=== PATIENT | male | born 1965 | race Caucasian/White ===

== ENCOUNTER 2017-09-11 17:39 | Emergency (ER) | END 2017-09-11 18:28 | disposition home or self-care (01) ==

== ENCOUNTER 2018-08-09 17:21 | Inpatient (IN) | payer MEDICAID ==
[~2018-08-09] VITALS: Ht 167.6 cm; Wt 74.5 kg
[~2018-08-09 17:21] MED LIST: BACTDS PO; CEPH-443 PO; CYCL10TA7 PO; IBUP-1561 PO; NAPR-985 PO
[2018-08-09] MEDS ORDERED: PANTOPRAZOLE IV 80 MG in SOD CHLORIDE 0.9% 100 ML IV STA (19:12)
[2018-08-09] MEDS ORDERED: PANTOPRAZOLE IV 80 MG in SOD CHLORIDE 0.9% 100 ML IVPB STA (19:12)
--- NOTE | 2018-08-09 19:28 | ERD ---
ER Documentation Chief Complaint Chief Complaint Complains of blood in the stool x 3 days HPI 53-year-old male who presents to the emergency room complaining of 5 days of epigastric abdominal discomfort. A known history of gastritis. He denies alcohol abuse or NSAID abuse. Patient notes melanotic stool over the past 24 hours. He denies any chest pain or chest pressure. No lightheadedness or dizziness. He denies taking [id number]-iadakvd iron or Pepto-Bismol. ROS All systems reviewed and are negative except as per history of present illness. Medications Home Meds Active Scripts Naproxen* (Naprosyn*) 500 Mg Tablet, 500 MG PO BID PRN for PAIN AND/OR INFLAMMATION, #30 TAB Prov:OLGA MEDINA PA-C 09/11/17 Cyclobenzaprine Hcl* (Cyclobenzaprine Hcl*) 10 Mg Tablet, 10 MG PO TID, #15 TAB Prov:OLGA MEDINA PA-C 09/11/17 Ibuprofen* (Motrin*) 400 Mg Tab, 400 MG PO Q6 for 7 Days, #30 TAB 0 Refills Prov:VU FRAGA PA-C 03/05/16 Sulfamethoxazole-Trimethoprim* (Bactrim* DS) 800-160 Mg Tab, 1 TAB PO BID for 7 Days, #14 TAB 0 Refills Prov:VU FRAGA PA-C 03/05/16 Cephalexin* (Keflex*) 500 Mg Capsule, 500 MG PO TID for 7 Days, #21 CAP 0 Refills Prov:VU FRAGA PA-C 03/05/16 Allergies Allergies: Coded Allergies: No Known Allergy (Unverified , 04/30/14) FmHx Family History: No diabetes Physical Exam Vitals Vital Signs Date Temp Pulse Resp B/P (MAP) Pulse Ox O2 O2 Flow FiO2 Time Delivery Rate 08/09/18 90 16 120/99 100 Room Air 19:15 (106) 08/09/18 97.5 103 20 143/85 98 17:22 (104) Physical Exam General: Well developed, well nourished, no acute distress Head: Normocephalic, atraumatic. Eyes: Pupils equally reactive, EOM intact ENT: Moist mucous membranes Neck: Supple, no lymphadenopathy Respiratory: Lungs clear bilaterally, no distress Cardiovascular: RRR, no murmurs, rubs, or gallops Abdominal: Soft, non-tender, non-distended, no peritoneal signs : Melena on digital rectal examination, no hemorrhoids MSK: No edema, no unilateral swelling, 5/5 strength Neurologic: Alert and oriented, moving all extremities, normal speech, no focal weakness, no cerebellar signs Skin: No rash Psych: Normal mood Result Diagram: 08/09/18191908/09/181919 Results 24 hrs Laboratory Tests Test 08/09/18 19:20 White Blood Count 10.1 10^3/ul Red Blood Count 5.42 10^6/ul Hemoglobin 16.3 g/dl Hematocrit 47.6 % Mean Corpuscular Volume 87.8 fl Mean Corpuscular Hemoglobin 30.1 pg Mean Corpuscular Hemoglobin Concent 34.2 g/dl Red Cell Distribution Width 12.5 % Platelet Count 250 10^3/UL Mean Platelet Volume 8.7 fl Immature Granulocytes % 0.400 % Neutrophils % 62.2 % Lymphocytes % 30.5 % Monocytes % 4.8 % Eosinophils % 1.7 % Basophils % 0.4 % Nucleated Red Blood Cells % 0.0 /100WBC Immature Granulocytes # 0.040 10^3/ul Neutrophils # 6.3 10^3/ul Lymphocytes # 3.1 10^3/ul Monocytes # 0.5 10^3/ul Eosinophils # 0.2 10^3/ul Basophils # 0.0 10^3/ul Nucleated Red Blood Cells # 0.0 10^3/ul Prothrombin Time 12.9 Sec Prothrombin Time Ratio 1.0 INR International Normalized Ratio 0.96 Activated Partial Thromboplast Time 29.0 Sec Sodium Level 141 mmol/L Potassium Level 4.1 mmol/L Chloride Level 98 mmol/L Carbon Dioxide Level 27 mmol/L Anion Gap 16 Blood Urea Nitrogen 13 mg/dl Creatinine 0.86 mg/dl Est Glomerular Filtrat Rate mL/min > 60 mL/min Glucose Level 104 mg/dl Calcium Level 9.6 mg/dl Total Bilirubin 0.1 mg/dl Direct Bilirubin 0.00 mg/dl Indirect Bilirubin 0.1 mg/dl Aspartate Amino Transf (AST/SGOT) 35 IU/L Alanine Aminotransferase (ALT/SGPT) 47 IU/L Alkaline Phosphatase 102 IU/L Total Protein 8.3 g/dl Albumin 4.8 g/dl Lipase 59 U/L Current Medications Medications Dose Sig/Hannah Start Time Status Last (Trade) Ordered Route PRN Stop Time Admin Dose Reason Admin Pantoprazole 100 ml @ ONCE STAT 08/09/18 DC 08/09/18 80 mg/Sodium 400 mls/hr IVPB 19:12 20:30 Chloride 08/09/18 19:26 Pantoprazole 100 ml @ ONCE STAT 08/09/18 08/09/18 80 mg/Sodium 10 mls/hr IV 19:12 20:30 Chloride 08/10/18 05:11 Procedures/MDM LAB INTERPRETATION: I reviewed the laboratory testing and it shows reassuring hemoglobin and BUN to creatinine ratio MEDICAL DECISION MAKING: Patient with clinical signs and symptoms consistent with subacute upper GI hemorrhage. Likely secondary to gastritis versus peptic ulcer disease. PPI bolus and drip would be indicated. No evidence of cirrhosis or alcoholic disease process. No indication for octreotide or antibiotics. No signs or symptoms of active hemorrhage. No indication for NG tube or lavage. The patient will benefit from PPI, monitoring, serial hemoglobin and GI consultation for endoscopy. ER COURSE: * Large bore peripheral IV was inserted. Patient started on PPI bolus and drip * The patient's lavatory testing is very reassuring. This is likely subacute process however given the patient has very poor outpatient follow-up I believe inpatient hospitalization for a GI consultation and endoscopy is appropriate. The patient is high risk given his acute melena. Therefore I do not believe outpatient management would be appropriate CONSULTATION: [None] DISPOSITION PLAN: Accepting care team and consultations: I discussed the current laboratory data, diagnostic imaging and emergency care provided. Admitting team: Dr. Atkins Admitting team indication: Insurance directed Departure Diagnosis: Primary Impression: Upper GI bleed Additional Impressions: Gastritis Gastritis type: unspecified gastritis Chronicity: acute Gastritis bleeding: with bleeding Qualified Codes: K29.01 - Acute gastritis with bleeding Melena Condition: Stable SÁNCHEZ DÍAZ MD Aug 09, 2018 19:28
--- NOTE | 2018-08-09 20:53 | HP ---
Date/Time of Note Date/Time of Note DATE: 08/09/18 TIME: 20:53 Assessment/Plan VTE Prophylaxis SCD applied (from Nsg): Yes Pharmacological prophylaxis: NA/contraindicated Pharm contraindication: bleeding Lines/Catheters IV Catheter Type (from Nrsg): Saline Lock Assessment/Plan Assessment/Plan 1. Acute epigastric pain - GI consulted to assess need for EGD - PPI on board - supportive care - clear diet and will keep NPO after midnight in anticipation for any procedures 2. Melena - PPI drip started in ED - FOBT ordered 3. h/o gastritis - PPI 4. Diet - NPO 5. GI ppx - PPI 6. DVT ppx - SCD 7. Disposition - Admit to med/surg for workup of acute GI bleed Result Diagram: 08/09/18191908/09/181919 Results 24hrs Laboratory Tests Test 08/09/18 19:20 White Blood Count 10.1 Red Blood Count 5.42 Hemoglobin 16.3 Hematocrit 47.6 Mean Corpuscular Volume 87.8 Mean Corpuscular Hemoglobin 30.1 Mean Corpuscular Hemoglobin Concent 34.2 Red Cell Distribution Width 12.5 Platelet Count 250 Mean Platelet Volume 8.7 Immature Granulocytes % 0.400 Neutrophils % 62.2 Lymphocytes % 30.5 Monocytes % 4.8 Eosinophils % 1.7 Basophils % 0.4 Nucleated Red Blood Cells % 0.0 Immature Granulocytes # 0.040 H Neutrophils # 6.3 Lymphocytes # 3.1 H Monocytes # 0.5 Eosinophils # 0.2 Basophils # 0.0 Nucleated Red Blood Cells # 0.0 Prothrombin Time 12.9 Prothrombin Time Ratio 1.0 INR International Normalized Ratio 0.96 Activated Partial Thromboplast Time 29.0 Sodium Level 141 Potassium Level 4.1 Chloride Level 98 Carbon Dioxide Level 27 Anion Gap 16 H Blood Urea Nitrogen 13 Creatinine 0.86 Est Glomerular Filtrat Rate mL/min > 60 Glucose Level 104 Calcium Level 9.6 Total Bilirubin 0.1 L Direct Bilirubin 0.00 Indirect Bilirubin 0.1 Aspartate Amino Transf (AST/SGOT) 35 Alanine Aminotransferase (ALT/SGPT) 47 Alkaline Phosphatase 102 Total Protein 8.3 H Albumin 4.8 Lipase 59 HPI/ROS Admit Date/Time Admit Date/Time 08/09/180 Hx of Present Illness 53 yo M with PMH gastritis presents to ED due to worsening epigastric pain for the past 1 week as well as melena for the past day. Patient states he has been experiencing severe epigastric pain, nonradiating, able to tolerate small PO intake. Patient admits to associated nausea but denies any vomiting, hematemesis, chest pain, dizziness, palpitations, urinary issues, constipation, diarrhea, or bright red blood per rectum. Patient has had gastritis for many years and takes Zantac and Pepcid for relief. He denies having melena in the past or EGD as well. ROS All 12 systems reviewed and pertinent positives as per HPI. All others negative. Constitutional: fatigue, nausea; No chills Eyes: No discharge ENT: No congestion Respiratory: No cough, No shortness of breath, No sputum, No wheezing Cardiovascular: No chest pain, No lightheadedness, No palpitations Gastrointestinal: pain, nausea; No constipation, No diarrhea, No vomiting Genitourinary: no complaints Musculoskeletal: no complaints Skin: no complaints Neurologic: No confusion, No dizziness, No focal-weakness, No syncope Endocrine: no complaints Lymphatic: no complaints Psychological: nl mood/affect Immunologic: no complaints PMH/Family/Social Past Medical History Medical History: GERD Medications Current Medications Pantoprazole 80 mg/Sodium Chloride 100 ml @ 10 mls/hr ONCE STAT IV Last administered on 08/09/18at 20:30; Admin Dose 10 MLS/HR; Start 08/09/18 at 19:12; Stop 08/10/18 at 05:11 Ondansetron HCl (Zofran Inj) 4 mg BRIDGE ORDER PRN IV NAUSEA/VOMITING; Start 08/09/18 at 21:00; Stop 08/10/18 at 20:59 Acetaminophen (Tylenol Tab) 650 mg ER BRIDGE PRN PO .MILD PAIN 1-3 OR TEMP; Start 08/09/18 at 21:00; Stop 08/10/18 at 20:59 Coded Allergies: No Known Allergy (Unverified , 04/30/14) Past Surgical History Past Surgical Hx: no surgical history Family History Significant Family History: no pertinent family hx Social History Alcohol Use: rarely Smoking Status: Never smoker Drug Use: none Exam/Review of Systems Vital Signs Vitals Vital Signs Date Temp Pulse Resp B/P (MAP) Pulse Ox O2 O2 Flow FiO2 Time Delivery Rate 08/09/18 90 16 120/99 100 Room Air 19:15 (106) 08/09/18 97.5 17:22 Exam Exam General: Patient is a pleasant male, fatigued, currently lying in bed. distress secondary to pain HEENT: Atraumatic, normocephalic. The pupils are equal, round and reactive. Extraocular motor are intact Neck: Supple with full range of motion. No rigidity or meningismus Chest: Nontender Lungs: Clear to auscultation bilaterally no crackles rales or wheezing Heart: Normal S1-S2, Regular rhythm and rate. no murmurs Abdomen: Soft , mild tenderness epigastric area, nondistended , bowel sounds are present. No guarding no rebound tenderness , No masses or organomegaly. No costovertebral temporal angle mass Extremities: Normal to inspection, no edema no cyanosis Neurologic: Normal mental status, speech normal, cranial nerves II through XII are intact, motor and sensory are intact, Additional Comments Home medication reviewed NAINA VELASQUEZ MD Aug 09, 2018 20:53
[2018-08-09] MEDS ORDERED: ACETAMINOPHEN 325 MG TAB PO PRN ×2 (21:00)
[2018-08-09] MEDS ORDERED: ONDANSETRON 4 MG INJ IV PRN ×2 (21:00)
[2018-08-09] MEDS ORDERED: NACL 0.9% 3 ML SYG IV SCH (21:00)
[2018-08-09] MEDS: DEXTROSE 5%-0.45% NACL 1,000 ML IV SCH (21:27)
[2018-08-09 23:15] VITALS: BP 117/80; PULSE 84; RESP 19; Ht 167.6 cm; Wt 74.5 kg
[2018-08-10] VITALS (16 sets, daily range): BP systolic 99–128; BP diastolic 64–85; PULSE 70–88; RESP 11–22
[2018-08-10] MEDS ORDERED: RANI150T5 PO (00:06)
[2018-08-10] MEDS ORDERED: morphine 2 MG INJ IV PRN (02:30)
[2018-08-10] MEDS: DEXTROSE 5%-0.45% NACL 1,000 ML IV SCH ×2 (05:20→15:56)
--- NOTE | 2018-08-10 13:49 | CONS ---
Assessment/Plan Assessment/Plan Hospital Course (Demo Recall) Summary Assessment and Plan: Assessment: Melena Epigastric pain History of gastritis Plan: PPI therapy NPO EGD today Endoscopy - risks/benefits/alternatives/indications of procedure and sedation/anesthesia discussed with patient who states understanding and gives informed consent to proceed. Further recommendations based on clinical course Patient seen in collaboration with Dr. Peña CC: HENRY PEÑA ; Consultation Date/Type/Reason Admit Date/Time 08/09/182129 Date of Consultation: Aug 10, 2018 Type of Consult GI Reason for Consultation Epigastric pain/ Melena Date/Time of Note DATE: 08/10/18 TIME: 13:41 Hx of Present Illness This is a 53 year old male with PMH of gastritis who presented to the ED with c/o progressive epigastric pain and x2 episodes of melena. Patient states upper abdominal pain initially started about 3 weeks ago became progressively worse, aggravated or relieved by anything in particular. Socially patient denies smoking, drug use drinks about 1 beer on special occasions. He does note intermittent nonsteroidal anti-inflammatory drug use. Has been consulted for possible upper endoscopy. Workup in the ED shows a hemoglobin of 16.3 it was again checked today is noted to be 15.7, INR 0.96 LFTs are within normal limit discussed plan for upper endoscopy today reviewed risk/benefits patient and both verbalized understanding are agreeable to procedure. Review of Systems: A 12 system, review was conducted and is negative except as noted in the HPI or here. Past Medical History Medical History: GERD Home Meds Active Scripts Ibuprofen* (Motrin*) 400 Mg Tab, 400 MG PO Q6 for 7 Days, #30 TAB 0 Refills Prov:VU FRAGA PA-C 03/05/16 Reported Medications Ranitidine Hcl* (Ranitidine Hcl*) 150 Mg Tablet, 150 MG PO Q12, #60 TAB 08/10/18 Discontinued Scripts Naproxen* (Naprosyn*) 500 Mg Tablet, 500 MG PO BID PRN for PAIN AND/OR INFLAMMATION, #30 TAB Prov:OLGA MEIDNA PA-C 09/11/17 Cyclobenzaprine Hcl* (Cyclobenzaprine Hcl*) 10 Mg Tablet, 10 MG PO TID, #15 TAB Prov:OLGA MEDINA PA-C 09/11/17 Sulfamethoxazole-Trimethoprim* (Bactrim* DS) 800-160 Mg Tab, 1 TAB PO BID for 7 Days, #14 TAB 0 Refills Prov:VU FRAGA PA-C 03/05/16 Cephalexin* (Keflex*) 500 Mg Capsule, 500 MG PO TID for 7 Days, #21 CAP 0 Refills Prov:VU FRAGA PA-C 03/05/16 Medications Current Medications Dextrose/Sodium Chloride 1,000 ml @ 100 mls/hr Q10H IV Last administered on 08/10/18at 05:20; Admin Dose 100 MLS/HR; Start 08/09/18 at 20:51 IV Flush (NS 3 ml) 3 ml PER PROTOCOL IV ; Start 08/09/18 at 21:00 Ondansetron HCl (Zofran Inj) 4 mg Q6H PRN IV NAUSEA/VOMITING; Start 08/09/18 at 21:00 Acetaminophen (Tylenol Tab) 650 mg Q6H PRN PO .PAIN 1-3 OR TEMP Last administered on 08/10/18at 10:59; Admin Dose 650 MG; Start 08/09/18 at 21:00 Morphine Sulfate (morphine) 2 mg Q4H PRN IV SEVERE PAIN LEVEL 7-10 Last administered on 08/10/18at 02:33; Admin Dose 2 MG; Start 08/10/18 at 02:30 Allergies: Coded Allergies: No Known Allergy (Unverified , 08/09/18) Past Surgical History Past Surgical Hx: no surgical history Social History Alcohol Use: rarely Smoking Status: Never smoker Drug Use: none Exam/Review of Systems Exam Vitals Vital Signs Date Temp Pulse Resp B/P (MAP) Pulse Ox O2 O2 Flow FiO2 Time Delivery Rate 08/10/18 98.8 84 20 110/64 96 08:00 (79) 08/09/18 Room Air 22:48 Intake and Output 08/09/18 08/09/18 08/10/18 1515:00 23:00 07:00 IntakeIntake Total 1100 ml BalanceBalance 1100 ml PHYSICAL EXAMINATION: GENERAL: Well developed, well nourished, alert & oriented x 3, in no acute distress SKIN: No lesions HEAD: Normocephalic, atraumatic, no tenderness. EYES: Pupils equal reactive to light, no discharge. EARS/NOSE AND THROAT: Ears normal, nose normal NECK: Supple CHEST: Inspection within normal limits. CARDIOVASCULAR: Heart: Regular rate and rhythm RESPIRATORY: Lungs clear to auscultation GASTROINTESTINAL AND LIVER: Abdomen: Soft, epigastric tenderness, non-distended, no hernias, no masses, no organomegaly, no ascites, no guarding, no rebound tenderness, normoactive bowel sounds. Rectal: Deferred. EXTREMITIES: No cyanosis, clubbing or edema. Results Result Diagram: 08/10/18 0538 08/10/18 0538 Results 24hrs Laboratory Tests Test 08/09/18 19:20 08/10/18 05:38 White Blood Count 10.1 8.2 Red Blood Count 5.42 5.20 Hemoglobin 16.3 15.7 Hematocrit 47.6 45.8 Mean Corpuscular Volume 87.8 88.1 Mean Corpuscular Hemoglobin 30.1 30.2 Mean Corpuscular Hemoglobin Concent 34.2 34.3 Red Cell Distribution Width 12.5 12.5 Platelet Count 250 227 Mean Platelet Volume 8.7 8.8 Immature Granulocytes % 0.400 0.400 Neutrophils % 62.2 55.1 Lymphocytes % 30.5 36.1 Monocytes % 4.8 6.0 Eosinophils % 1.7 1.9 Basophils % 0.4 0.5 Nucleated Red Blood Cells % 0.0 0.0 Immature Granulocytes # 0.040 H 0.030 Neutrophils # 6.3 4.5 Lymphocytes # 3.1 H 3.0 H Monocytes # 0.5 0.5 Eosinophils # 0.2 0.2 Basophils # 0.0 0.0 Nucleated Red Blood Cells # 0.0 0.0 Prothrombin Time 12.9 Prothrombin Time Ratio 1.0 INR International Normalized Ratio 0.96 Activated Partial Thromboplast Time 29.0 Sodium Level 141 140 Potassium Level 4.1 3.7 Chloride Level 98 100 Carbon Dioxide Level 27 28 Anion Gap 16 H 12 Blood Urea Nitrogen 13 11 Creatinine 0.86 0.96 Est Glomerular Filtrat Rate mL/min > 60 > 60 Glucose Level 104 100 Calcium Level 9.6 9.2 Total Bilirubin 0.1 L Direct Bilirubin 0.00 Indirect Bilirubin 0.1 Aspartate Amino Transf (AST/SGOT) 35 Alanine Aminotransferase (ALT/SGPT) 47 Alkaline Phosphatase 102 Total Protein 8.3 H Albumin 4.8 Lipase 59 Magnesium Level 2.0 Medications Medication Current Medications Dextrose/Sodium Chloride 1,000 ml @ 100 mls/hr Q10H IV Last administered on 08/10/18 05:20; Admin Dose 100 MLS/HR; Start 08/09/18 at 20:51 IV Flush (NS 3 ml) 3 ml PER PROTOCOL IV ; Start 08/09/18 at 21:00 Ondansetron HCl (Zofran Inj) 4 mg Q6H PRN IV NAUSEA/VOMITING; Start 08/09/18 at 21:00 Acetaminophen (Tylenol Tab) 650 mg Q6H PRN PO .PAIN 1-3 OR TEMP Last administered on 08/10/18at 10:59; Admin Dose 650 MG; Start 08/09/18 at 21:00 Morphine Sulfate (morphine) 2 mg Q4H PRN IV SEVERE PAIN LEVEL 7-10 Last administered on 08/10/18 02:33; Admin Dose 2 MG; Start 08/10/18 at 02:30 VANESSA LESTER Aug 10, 2018 13:49
--- NOTE | 2018-08-10 14:09 | PN ---
Date/Time of Note Date/Time of Note DATE: 08/10/18 TIME: 14:09 Assessment/Plan VTE Prophylaxis Risk score (from Ns)>0 risk: 3 SCD applied (from [facility]): Yes Pharmacological prophylaxis: NA/contraindicated Pharm contraindication: bleeding Lines/Catheters IV [facility]ter Type (from [facility]): Peripheral IV Assessment/Plan Hospital Course SUBJECTIVE: Today no reported rectal bleed, nausea, vomiting, abdominal pain or others. OBJECTIVE: Vital signs-see below PHYSICAL EXAM: Constitutional: Well-developed, adequately built, lying in bed comfortably. Psych: nl mood/affect, no complaints Head: atraumatic, normocephalic Eyes: nl conjunctiva, nl sclera ENMT: mucosa pink and moist, nl external ears & nose Neck: non-tender, supple Respiratory: clear to auscultation, normal air movement Cardiovascular: nl pulses, regular rate and rhythm Gastrointestinal: non-tender, soft, bowel sounds active in all 4 quadrants. Musculoskeletal/extremities: nl extremities to inspection, motor strength equal bilaterally, no focal deficit. Normal pulses,no cyanosis, no edema. Neurological: Alert oriented 3,nl speech, nl strength Skin: nl turgor ASSESSMENT/PLAN: 53-year-old male with a history of gastritis, here with abdominal pain and black stool. 1. Abdominal pain/rectal bleed. Rule out upper/lower GI bleed -GI following and plan is EGD -Continue n.p.o. -Empiric PPI -H&H, currently stable. 2. Hx Gastritis - PPI GI ppx - PPI DVT ppx - SCD Disposition: She is scheduled for EGD. Follow-up GI recommendations. Patient was seen in collaboration with Result Diagram: 08/10/18 0538 08/10/18 0538 Results 24hrs Laboratory Tests Test 08/09/18 19:20 08/10/18 05:38 White Blood Count 10.1 8.2 Red Blood Count 5.42 5.20 Hemoglobin 16.3 15.7 Hematocrit 47.6 45.8 Mean Corpuscular Volume 87.8 88.1 Mean Corpuscular Hemoglobin 30.1 30.2 Mean Corpuscular Hemoglobin Concent 34.2 34.3 Red Cell Distribution Width 12.5 12.5 Platelet Count 250 227 Mean Platelet Volume 8.7 8.8 Immature Granulocytes % 0.400 0.400 Neutrophils % 62.2 55.1 Lymphocytes % 30.5 36.1 Monocytes % 4.8 6.0 Eosinophils % 1.7 1.9 Basophils % 0.4 0.5 Nucleated Red Blood Cells % 0.0 0.0 Immature Granulocytes # 0.040 H 0.030 Neutrophils # 6.3 4.5 Lymphocytes # 3.1 H 3.0 H Monocytes # 0.5 0.5 Eosinophils # 0.2 0.2 Basophils # 0.0 0.0 Nucleated Red Blood Cells # 0.0 0.0 Prothrombin Time 12.9 Prothrombin Time Ratio 1.0 INR International Normalized Ratio 0.96 Activated Partial Thromboplast Time 29.0 Sodium Level 141 140 Potassium Level 4.1 3.7 Chloride Level 98 100 Carbon Dioxide Level 27 28 Anion Gap 16 H 12 Blood Urea Nitrogen 13 11 Creatinine 0.86 0.96 Est Glomerular Filtrat Rate mL/min > 60 > 60 Glucose Level 104 100 Calcium Level 9.6 9.2 Total Bilirubin 0.1 L Direct Bilirubin 0.00 Indirect Bilirubin 0.1 Aspartate Amino Transf (AST/SGOT) 35 Alanine Aminotransferase (ALT/SGPT) 47 Alkaline Phosphatase 102 Total Protein 8.3 H Albumin 4.8 Lipase 59 Magnesium Level 2.0 Exam/Review of Systems Exam Vitals Vital Signs Date Temp Pulse Resp B/P (MAP) Pulse Ox O2 O2 Flow FiO2 Time Delivery Rate 08/10/18 98.8 84 20 110/64 96 08:00 (79) 08/09/18 Room Air 22:48 Intake and Output 08/09/18 08/09/18 08/10/18 1515:00 23:00 07:00 IntakeIntake Total 1100 ml BalanceBalance 1100 ml Results Results 24hrs Laboratory Tests Test 08/09/18 19:20 08/10/18 05:38 White Blood Count 10.1 8.2 Red Blood Count 5.42 5.20 Hemoglobin 16.3 15.7 Hematocrit 47.6 45.8 Mean Corpuscular Volume 87.8 88.1 Mean Corpuscular Hemoglobin 30.1 30.2 Mean Corpuscular Hemoglobin Concent 34.2 34.3 Red Cell Distribution Width 12.5 12.5 Platelet Count 250 227 Mean Platelet Volume 8.7 8.8 Immature Granulocytes % 0.400 0.400 Neutrophils % 62.2 55.1 Lymphocytes % 30.5 36.1 Monocytes % 4.8 6.0 Eosinophils % 1.7 1.9 Basophils % 0.4 0.5 Nucleated Red Blood Cells % 0.0 0.0 Immature Granulocytes # 0.040 H 0.030 Neutrophils # 6.3 4.5 Lymphocytes # 3.1 H 3.0 H Monocytes # 0.5 0.5 Eosinophils # 0.2 0.2 Basophils # 0.0 0.0 Nucleated Red Blood Cells # 0.0 0.0 Prothrombin Time 12.9 Prothrombin Time Ratio 1.0 INR International Normalized Ratio 0.96 Activated Partial Thromboplast Time 29.0 Sodium Level 141 140 Potassium Level 4.1 3.7 Chloride Level 98 100 Carbon Dioxide Level 27 28 Anion Gap 16 H 12 Blood Urea Nitrogen 13 11 Creatinine 0.86 0.96 Est Glomerular Filtrat Rate mL/min > 60 > 60 Glucose Level 104 100 Calcium Level 9.6 9.2 Total Bilirubin 0.1 L Direct Bilirubin 0.00 Indirect Bilirubin 0.1 Aspartate Amino Transf (AST/SGOT) 35 Alanine Aminotransferase (ALT/SGPT) 47 Alkaline Phosphatase 102 Total Protein 8.3 H Albumin 4.8 Lipase 59 Magnesium Level 2.0 Medications Medication Current Medications Dextrose/Sodium Chloride 1,000 ml @ 100 mls/hr Q10H IV Last administered on 08/10/18 05:20; Admin Dose 100 MLS/HR; Start 08/09/18 at 20:51 IV Flush (NS 3 ml) 3 ml PER PROTOCOL IV ; Start 08/09/18 at 21:00 Ondansetron HCl (Zofran Inj) 4 mg Q6H PRN IV NAUSEA/VOMITING; Start 08/09/18 at 21:00 Acetaminophen (Tylenol Tab) 650 mg Q6H PRN PO .PAIN 1-3 OR TEMP Last administered on 08/10/18at 10:59; Admin Dose 650 MG; Start 08/09/18 at 21:00 Morphine Sulfate (morphine) 2 mg Q4H PRN IV SEVERE PAIN LEVEL 7-10 Last administered on 08/10/18at 02:33; Admin Dose 2 MG; Start 08/10/18 at 02:30 MANNY WHITING NP Aug 10, 2018 14:09
--- NOTE | 2018-08-10 18:07 | PREAC ---
Date/Time of Note Date/Time of Note DATE: 08/10/18 TIME: 18:06 Anesthesia Eval and Record Evaluation Time Pre-Procedure Interview DATE: 08/10/18 TIME: 18:06 Age 53 Sex male NPO: 8 hrs Preoperative diagnosis Upper GI bleeding Planned procedure EGD Past Medical History Past Medical History: None Surgery & Anesthesia Issues No known issue Meds Anticoagulation: No Beta Cal within 24 hr: No Reason Beta Cal not given: Pt. not on B-Cal Active Scripts Ibuprofen* (Motrin*) 400 Mg Tab, 400 MG PO Q6 for 7 Days, #30 TAB 0 Refills Prov:VU FRAGA PA-C 03/05/16 Reported Medications Ranitidine Hcl* (Ranitidine Hcl*) 150 Mg Tablet, 150 MG PO Q12, #60 TAB 08/10/18 Discontinued Scripts Naproxen* (Naprosyn*) 500 Mg Tablet, 500 MG PO BID PRN for PAIN AND/OR INFLAMMATION, #30 TAB Prov:OLGA MEDINA PA-C 09/11/17 Cyclobenzaprine Hcl* (Cyclobenzaprine Hcl*) 10 Mg Tablet, 10 MG PO TID, #15 TAB Prov:OLGA MEDINA PA-C 09/11/17 Sulfamethoxazole-Trimethoprim* (Bactrim* DS) 800-160 Mg Tab, 1 TAB PO BID for 7 Days, #14 TAB 0 Refills Prov:VU FRAGA PA-C 03/05/16 Cephalexin* (Keflex*) 500 Mg Capsule, 500 MG PO TID for 7 Days, #21 CAP 0 Refills Prov:VU FRAGA PA-C 03/05/16 Current Medications Dextrose/Sodium Chloride 1,000 ml @ 100 mls/hr Q10H IV Last administered on 08/10/18at 15:56; Admin Dose 100 MLS/HR; Start 08/09/18 at 20:51 IV Flush (NS 3 ml) 3 ml PER PROTOCOL IV ; Start 08/09/18 at 21:00 Ondansetron HCl (Zofran Inj) 4 mg Q6H PRN IV NAUSEA/VOMITING; Start 08/09/18 at 21:00 Acetaminophen (Tylenol Tab) 650 mg Q6H PRN PO .PAIN 1-3 OR TEMP Last administered on 08/10/18at 10:59; Admin Dose 650 MG; Start 08/09/18 at 21:00 Morphine Sulfate (morphine) 2 mg Q4H PRN IV SEVERE PAIN LEVEL 7-10 Last administered on 08/10/18at 02:33; Admin Dose 2 MG; Start 08/10/18 at 02:30 Pantoprazole (Protonix Iv) 40 mg BID@06,18 IV ; Start 08/10/18 at 18:00 Meds reviewed: Yes Allergies Coded Allergies: No Known Allergy (Unverified , 08/09/18) Allergies Reviewed: Yes Labs/Studies Labs Reviewed: Reviewed by anesthesiologist Result Diagram: 08/10/1838 08/10/1838 Laboratory Tests 08/10/18 05:38 Blood Bank Test 08/09/18 19:20 Antibody Screen NEGATIVE Blood Type O NEGATIVE test: N/A Pre-procedure Exam Last vitals Vital Signs Date Temp Pulse Resp B/P (MAP) Pulse Ox O2 O2 Flow FiO2 Time Delivery Rate 08/10/18 98.4 79 20 128/82 98 Room Air 17:39 (97) Airway: Adequate mouth opening Mallampati: Mallampati I Teeth: Normal Lung: Normal Heart: Normal ASA Physical Status ASA physical status: 1 Emergency: None Planned Anesthetic General/MAC: MAC Planned Pain Management Parenteral pain med Pre-operative Attestations Prior to commencing anesthesia and surgery, the patient was re-evaluated, there was verification of: *The patient's identity *The results of appropriate recent lab work and preoperative vital signs *The above evaluation not changing prior to induction *Anesthetic plan, risk benefits, alternative and complications discussed with patient/family; questions answered; patient/family understands, accepts and wishes to proceed. JEREMI ZHOU MD Aug 10, 2018 18:07
[2018-08-10] MEDS ORDERED: PROPOFOL 20 ML ONE (18:09)
--- NOTE | 2018-08-10 18:16 | HPN ---
Date/Time of Note Date/Time of Note DATE: 08/10/18 TIME: 18:15 Interval H&P Admission Note Pt. seen H&P reviewed: No system changes HENRY PEÑA Aug 10, 2018 18:16
[2018-08-10] MEDS ORDERED: HYDROmorphONE 1 MG/5 ML IV SYRINGE IV ONE (19:12)
--- NOTE | 2018-08-10 19:13 | PAC ---
Date/Time of Note Date/Time of Note DATE: 08/10/18 TIME: 19:13 Post-Anesthesia Notes Post-Anesthesia Note Last documented vital signs Vital Signs Date Temp Pulse Resp B/P (MAP) Pulse Ox O2 O2 Flow FiO2 Time Delivery Rate 08/10/18 72 16 101/69 98 Room Air 18:51 (80) 08/10/18 98.8 18:31 08/10/18 10 18:06 Activity: WNL Respiratory function: WNL Cardiovascular function: WNL Mental status: Baseline Pain reasonably controlled: Yes Hydration appropriate: Yes Nausea/Vomiting absent: Yes JEREMI ZHOU MD Aug 10, 2018 19:13
[2018-08-10] MEDS ORDERED: HYDROmorphONE 1 MG/5 ML IV SYRINGE IV PRN (19:30)
[2018-08-10] MEDS: PANTOPRAZOLE 40 MG INJ IV SCH (19:58)
[2018-08-11 02:16] VITALS: BP 90/52; PULSE 76; RESP 18
[2018-08-11] MEDS: DEXTROSE 5%-0.45% NACL 1,000 ML IV SCH (03:25)
[2018-08-11] MEDS: PANTOPRAZOLE 40 MG INJ IV SCH (06:03)
[2018-08-11 07:25] VITALS: BP 113/76; PULSE 74; RESP 16
--- NOTE | 2018-08-11 11:12 | PDOCDIS ---
Discharge Instructions CONDITION [id number] Patient Condition: [id number] Stable HOME CARE INSTRUCTIONS: [id number] Diet Instructions: [id number] Regular FOLLOW UP/APPOINTMENTS Follow-up Plan Follow-up with primary care physician in 1 week Follow-up with to obtain endoscopy pathology report in a week. [id number] [facility] [place] [address] Office MANNY WHITING NP Aug 11, 2018 11:12
[2018-08-11] MEDS ORDERED: PANT40TA3 PO (11:13)
--- NOTE | 2018-08-11 11:19 | DS ---
Date/Time of Note Date/Time of Note DATE: 08/11/18 TIME: 11:17 Discharge Summary Admission/Discharge Info Admit Date/Time Aug 09, 2018 at 20:41 Discharge Date/Time Discharge Diagnosis 1. Melena/UGIB 2/2 gastroduodenitis. Stable. 2. Hx Gastritis Patient Condition: Stable Consults , gastroenterology Procedures 08/10/2018. EGD. Impression: Gastroduodenitis. Hospital Course 53-year-old male with a history of gastritis, here with abdominal pain and black stool. Patient was continued on empiric PPI. Patient had endoscopy on 08/10/2018, showed gastroduodenitis. Recommendation was to continue PPI twice daily. Pathology report pending which patient to follow-up with 's office. Patient with stable H&H, no further rectal bleed. He is tolerating diet and activities. Patient will be discharged on PPI with GI follow-up. Approximately 60 minutes was spent on coordinating the discharge on this patient. Patient was seen in collaboration with [facility] Active Scripts Pantoprazole* (Protonix*) 40 Mg Tablet., 40 MG PO BID, #60 TAB 1 Refill Prov:MANNY WHITING [employer] 08/11/18 Ibuprofen* (Motrin*) 400 Mg Tab, 400 MG PO Q6 for 7 Days, #30 TAB 0 Refills Prov:VU FRAGA PA-C 03/05/16 Reported Medications Ranitidine Hcl* (Ranitidine Hcl*) 150 Mg Tablet, 150 MG PO Q12, #60 TAB 08/10/18 Discontinued Scripts Naproxen* (Naprosyn*) 500 Mg Tablet, 500 MG PO BID PRN for PAIN AND/OR INFLAMMATION, #30 TAB Prov:OLGA MEDINA PA-C 09/11/17 Cyclobenzaprine Hcl* (Cyclobenzaprine Hcl*) 10 Mg Tablet, 10 MG PO TID, #15 TAB Prov:OLGA MEDINA PA-C 09/11/17 Sulfamethoxazole-Trimethoprim* (Bactrim* DS) 800-160 Mg Tab, 1 TAB PO BID for 7 Days, #14 TAB 0 Refills Prov:VU FRAGA PA-C 03/05/16 Cephalexin* (Keflex*) 500 Mg Capsule, 500 MG PO TID for 7 Days, #21 CAP 0 Refills Prov:VU FRAGA PA-C 03/05/16 Follow-up Plan Follow-up with primary care physician in 1 week Follow-up with to obtain endoscopy pathology report in a week. [id number] [facility] [address] [place] [address] Office Primary Care Provider Care Physician No Primary Pending Labs Laboratory Tests Test 08/11/18 06:07 White Blood Count 6.6 10^3/ul (4.8-10.8) Red Blood Count 5.09 10^6/ul (4.70-6.10) Hemoglobin 15.5 g/dl (14.0-18.0) Hematocrit 45.6 % (42.0-52.0) Mean Corpuscular Volume 89.6 fl (82.0-101.0) Mean Corpuscular Hemoglobin 30.5 pg (29.0-33.0) Mean Corpuscular Hemoglobin Concent 34.0 g/dl (32.0-37.0) Red Cell Distribution Width 12.6 % (11.5-14.5) Platelet Count 202 10^3/UL (140-415) Mean Platelet Volume 8.7 fl (7.4-10.4) Immature Granulocytes % 0.300 % (0.001-0.429) Neutrophils % 58.1 % (39.0-77.0) Lymphocytes % 32.2 % (15.0-51.0) Monocytes % 6.2 % (0.0-11.0) Eosinophils % 2.7 % (0.0-7.0) Basophils % 0.5 % (0.0-2.0) Nucleated Red Blood Cells % 0.0 /100WBC (0.0-0.0) Immature Granulocytes # 0.020 10^3/ul (0.0-0.031) Neutrophils # 3.8 10^3/ul (1.6-7.5) Lymphocytes # 2.1 10^3/ul (0.8-2.9) Monocytes # 0.4 10^3/ul (0.3-0.9) Eosinophils # 0.2 10^3/ul (0.0-0.5) Basophils # 0.0 10^3/ul (0.0-0.1) Nucleated Red Blood Cells # 0.0 10^3/ul (0.0-0.0) Sodium Level 140 mmol/L (135-144) Potassium Level 4.2 mmol/L (3.5-5.1) Chloride Level 104 mmol/L (97-110) Carbon Dioxide Level 31 mmol/L (21-31) Anion Gap 5 (5-13) Blood Urea Nitrogen 14 mg/dl (7-20) Creatinine 0.95 mg/dl (0.61-1.24) Est Glomerular Filtrat Rate mL/min > 60 mL/min (>60) Glucose Level 106 mg/dl (70-220) Calcium Level 9.3 mg/dl (8.4-10.2) MANNY WHITING NP Aug 11, 2018 11:19
[2018-08-11 14:10] VITALS: BP 98/66; PULSE 73; RESP 16
== END 2018-08-11 17:15 | disposition home or self-care (01) | DRG 379 ==
LOC: E/R 17:21 → PP2 20:41
PROVIDERS: ADMIT Internal Medicine; ATTEND Internal Medicine
DX: K29.91 Gastroduodenitis, unspecified, with bleeding (principal); R10.13 Epigastric pain
CPT/HCPCS: 36415; 80048; 80076; 83690; 83735; 85025; 85610; 85730; 86850; 86900; 86901; 96374; 96376; C9113; J1170; J2270; J7042